=== PATIENT | male | born 1975 | race Caucasian/White ===

== ENCOUNTER 2018-01-28 10:35 | Emergency (ER) | payer OTHER ==
[~2018-01-28] VITALS: Ht 167.6 cm; Wt 78.9 kg
[~2018-01-28 10:35] MED LIST: NORV PO; RAYATAZ PO; T3 PO; TRUVADA PO
[2018-01-28 11:10] VITALS: Ht 167.6 cm; Wt 78.9 kg
[2018-01-28 12:23] LABS: BASOPHIL % 1.1 % (0-2); PLATELET COUNT 148 x10^3mcL (130-400)
[2018-01-28 12:34] LABS: CALCIUM 8.2 mg/dL (8.5-10.1); CARBON DIOXIDE 31.3 mmol/L (21-32); CHLORIDE SERUM 104 mmol/L (98-107); CREATININE SERUM 0.7 mg/dL (0.7-1.3); GFR1 > 60 mL/min; GLUCOSE SERUM 87 mg/dL (74-106); POTASSIUM SERUM 3.5 mmol/L (3.5-5.1); SODIUM SERUM 136 mmol/L (136-145)
[2018-01-28 12:39] LABS: ALBUMIN 3.2 g/dL (3.4-5.0); ALKALINE PHOSPHATASE 72 U/L (46-116); ALT/SGPT 21 U/L (16-63); AMYLASE 88 U/L (25-115); AST/SGOT 16 U/L (15-37); BILIRUBIN TOTAL 0.6 mg/dL (0.20-1.00); LIPASE 87 IU/L (73-393); TOTAL PROTEIN, SERUM 7.2 g/dL (6.4-8.2)
[2018-01-28 15:01] VITALS: BP 135/90
== END 2018-01-28 15:01 | disposition home or self-care (01) ==
LOC: ED 10:35
PROVIDERS: Specialist
DX: R16.1 Splenomegaly, not elsewhere classified (principal); R10.12 Left upper quadrant pain
CPT/HCPCS: 36415; J1885; Q0092

== ENCOUNTER 2018-09-29 18:53 | Emergency (ER) | payer OTHER ==
[~2018-09-29] VITALS: Ht 167.6 cm; Wt 80.7 kg
[2018-09-29 19:04] VITALS: Ht 167.6 cm; Wt 80.7 kg
[2018-09-29 21:40] VITALS: BP 121/90
== END 2018-09-29 21:40 | disposition home or self-care (01) ==
LOC: ED 18:53
DX: S93.402A Sprain of unspecified ligament of left ankle, initial encounter (principal); F31.9 Bipolar disorder, unspecified; W11.XXXA Fall on and from ladder, initial encounter; Y93.89 Activity, other specified; Y92.89 Other specified places as the place of occurrence of the external cause; Y99.8 Other external cause status
CPT/HCPCS: J1885

== ENCOUNTER 2019-09-06 01:09 | Emergency (ER) | payer OTHER ==
[~2019-09-06] VITALS: Ht 167.6 cm; Wt 74.4 kg
[2019-09-06 01:16] VITALS: Ht 167.6 cm; Wt 74.4 kg
[2019-09-06 04:43] VITALS: BP 128/69
== END 2019-09-06 04:43 | disposition home or self-care (01) ==
LOC: ED 01:09
DX: L02.415 Cutaneous abscess of right lower limb (principal); F31.9 Bipolar disorder, unspecified
CPT/HCPCS: J0690; J2001

== ENCOUNTER 2019-12-10 16:15 | Emergency (ER) | payer OTHER ==
[~2019-12-10] VITALS: Ht 167.6 cm; Wt 75.7 kg
[2019-12-10 16:20] VITALS: BP 145/95; Ht 167.6 cm; Wt 75.7 kg
== END 2019-12-10 17:02 | disposition home or self-care (01) ==
LOC: ED 16:15
DX: L02.416 Cutaneous abscess of left lower limb (principal); M06.9 Rheumatoid arthritis, unspecified
CPT/HCPCS: J1885

== ENCOUNTER 2020-12-20 14:44 | Emergency (ER) | payer OTHER ==
[~2020-12-20] VITALS: Ht 167.6 cm; Wt 81.6 kg
[2020-12-20 15:00] VITALS: Ht 167.6 cm; Wt 81.6 kg
[2020-12-20] MEDS ORDERED: ACETAMINOPHEN-H1 TA1 PO (18:04)
[2020-12-20] MEDS ORDERED: IBU600 M2 PO (18:04)
[2020-12-20 18:24] VITALS: BP 158/99
== END 2020-12-20 18:24 | disposition home or self-care (01) ==
LOC: ED 14:44
DX: S82.142A Displaced bicondylar fracture of left tibia, initial encounter for closed fracture (principal); M06.9 Rheumatoid arthritis, unspecified; W22.8XXA Striking against or struck by other objects, initial encounter; Y93.89 Activity, other specified; Y92.89 Other specified places as the place of occurrence of the external cause; Y99.8 Other external cause status